=== PATIENT | female | born 1970 | race Caucasian/White ===

== ENCOUNTER → 2019-11-05 | Outpatient (CLI) | payer BC ==
[2019-11-05 13:33] VITALS: BP 126/83; PULSE 65; RESP 16; TEMP 98
--- NOTE | 2019-11-05 14:00 | P.GSHP ---
History of Present Illness H&P Date: 11/05/19 Chief Complaint: Abnormal right breast mammogram Eileen is a 49-year-old white female who had an initial mammogram performed in July 2019 and is seen in consultation for Mery Oconnell, and Dr. Torre regarding an abnormality in the right breast. Following this additional views of the right breast were recommended. On the right breast is noted to have persistent heterogeneous calcifications in the middle to posterior depth upper aspect. This was seen into lateral slice 35. The patient does not feel any lumps masses or nodules in her breast. She is not complaining of any nipple discharge or skin changes. She has not had any recent trauma or infection in the breast. Of concern is the fact that she has a sister diagnosed with breast cancer near the age of 50. Family History: sister: breast cancer patient: cervical cancer, no chemo or radiation father: colon cancer niece: cervical cancer Hormonal History; menarche: 14 , breast fed:no, age at first: 17 menopause: going through that now, periods stopped over a year ago BCP: none hormones: none Surgical history: Pins in the left elbow Tubal ligation Right wrist surgery stints placed on aspirin and plavix Medical History: OR May/stints placed Social History: smoke: stopped in , 09/09 PPD for 27 years alcohol: none drugs: none - Constitutional Constitutional: Reports sweats - EENT Eyes: denies blurred vision, denies pain Ears: deny: decreased hearing, tinnitus Ears, nose, mouth and throat: Denies headache, Denies sore throat - Breasts Breasts: bilateral: as per HPI - Cardiovascular Comment: OR - Respiratory Comment: former smoker - Gastrointestinal Comment: peptic ulcer disease - Genitourinary (Female) Genitourinary: Reports kidney stones, Denies dysuria, Denies hematuria - Menstruation Menstruation: Reports postmenopausal - Musculoskeletal Comment: arthritis in hands - Integumentary Integumentary: Denies pruritus, Denies rash - Neurological Neurological: Denies numbness, Denies weakness - Psychiatric Psychiatric: Denies anxiety, Denies depression - Endocrine Endocrine: Denies fatigue, Denies weight change - Hematologic/Lymphatic Comment: aspirin and plavix/ 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, can stop one or the other for two days - Allergic/Immunologic Allergic/Immunologic: Reports seasonal allergies Past Medical History Smoking Status: Former smoker Medications and Allergies Home Medications Medication Instructions Recorded Confirmed Type Aspirin [Adult Low Dose Aspirin EC] 81 mg PO QAM 11/05/19 11/05/19 History Atorvastatin [Lipitor] 80 mg PO HS 11/05/19 11/05/19 History Carvedilol [Coreg] 3.125 mg PO BID 11/05/19 11/05/19 History Clopidogrel [Plavix] 75 mg PO QAM 11/05/19 11/05/19 History Famotidine [Pepcid] 20 mg PO QAM 11/05/19 11/05/19 History Ferrous Sulfate [Iron] 325 mg PO QAM 11/05/19 11/05/19 History Gabapentin [Neurontin] 100 mg PO BID 11/05/19 11/05/19 History Lisinopril [Zestril] 5 mg PO HS 11/05/19 11/05/19 History metFORMIN HCL 500 mg PO HS 11/05/19 11/05/19 History Allergies Allergy/AdvReac Type Severity Reaction Status Date / Time sulfamethoxazole Allergy Rash/Hives Unverified 11/05/19 13:10 [From Bactrim] trimethoprim [From Bactrim] Allergy Rash/Hives Unverified 11/05/19 13:10 Surgical - Exam BMI 22.2 - General well developed, well nourished, no distress - Eyes normal ocular movement - ENT normal pinna, normal nares, no hearing loss, no congestion - Neck no masses, trachea midline - Respiratory normal expansion, normal respiratory effort, clear to auscultation - Cardiovascular Rhythm: regular Heart Sounds: normal: S1, S2 - Abdomen Abdomen: soft, non tender, bowel sounds, no guarding, no rigid, no rebound - Integumentary normal turgor - Neurologic no disoriented, no combative - Musculoskeletal normal gait - Psychiatric oriented to time, oriented to person, oriented to place, speech is normal, memory intact breast exam: BRA 34 C Ptosis grade 2 Inspection: Right breast slightly larger than the left breast with the nipple areolar complex slightly lower, no skin lesions of concern Palpation: Right breast: Fibrocystic changes on Multi-positional exam no dominant masses or nodules of concern Right axilla: No adenopathy of concern Left breast: Multiple positional exam fibrocystic changes no dominant mass or nodule is of concern Left axilla: No adenopathy of concern Results mammogram reviewed with Dr. Davis from radiology, area is suspicious enough that she believes it does warrant biopsy despite the fact patient is had a recent myocardial infarction, patient was told from cardiology she could stop aspirin or Plavix for 2 days before but not both Assessment and Plan Assessment: Impression: 1. Mammographic normality right breast 2. Bilateral fibrocystic breast changes 3. Family history of breast cancer 4. Recent myocardial infarction on aspirin and Plavix 5. Former smoker Plan: 1. Stereotactic core biopsy right breast 2. Patient is going to stop her Plavix for 2 days prior to the procedure Risks and benefits of stereotactic core biopsy discussed with the patient and her . They understand and understand that she is at increased risk for hematoma secondary to the fact she will continue on her aspirin. Risk include but are not limited to bleeding, infection, reaction to the anesthetic. There is a risk that the area of concern may not be sampled and the patient may require further intervention. They understand and wish to proceed. Clearance from Dr. Sheth (cardiology) reviewed she notes that the patient underwent placement of a proximal LAD stent in May 2019. That the ACC/AHA guideline recommendation is dual antiplatelet therapy for minimum of 1 year. The patient however has a sufficiently suspicious lesion in her right breast that biopsy is warranted. She will continue the aspirin and stop the Plavix for approximately 2 days prior to the procedure. She will restart the plavix again the first postoperative day. CC: Dr. Nicho Cha encounter 45 minutes, > 50% of time in planning and counselling
== END ==
LOC: WWCWWP 12:47
PROVIDERS: ATTEND Surgery
DX: Z53.9 Procedure and treatment not carried out, unspecified reason (principal)

== ENCOUNTER → 2020-02-08 | Outpatient (CLI) | payer BC | END | disposition home or self-care (01) | LOC: LABWHC1 10:04 | PROVIDERS: ATTEND Family Medicine | DX: Z11.59 Encounter for screening for other viral diseases (principal) ==

== ENCOUNTER → 2020-02-10 | Day surgery (SDC) | payer BC ==
[2020-02-10 07:19] VITALS: RESP 16; TEMP 98.4
--- NOTE | 2020-02-10 08:59 | P.PCN ---
Date of Procedure: 02/10/20 Preoperative Diagnosis: Mammographic abnormality right breast Postoperative Diagnosis: Same Procedure(s) Performed: Right breast stereotactic core biopsy Anesthesia: local Surgeon: Kristin Braun Estimated Blood Loss (ml): 0.2 Pathology: other (Breast tissue) Condition: stable Disposition: same day Indications for Procedure: Heterogeneous calcifications in the right breast Operative Findings: Dense breast tissue/microcalcifications noted in biopsy specimen Description of Procedure: Eileen is a 49-year-old white female who was noted to have heterogeneous calcifications middle to posterior depth upper aspect of the right breast. She was recommended to undergo a stereotactic core biopsy. The patient had 2 groups of calcifications which were being followed. The more suspicious group was a linear group. This was reviewed with Dr. Nelson from radiology. The patient has been on anticoagulation and continue his baby aspirin as well as stopping Plavix for only 2 days preprocedure. She wishes to undergo stereo biopsy. Risk and benefits of the procedure including hematoma were discussed with the patient. Alternatives including watchful waiting or from biopsy were not recommended. The patient was taken to the stereotactic core biopsy unit. The patient was positioned on the stereotactic table. A property management coordinator film was obtained. The area of concern was identified. The microcalcifications were very faint. A medial to lateral approach was utilized. The area of concern was localized using a stereo pair. The breast was prepped using Betadine. 25 mL of 1% lidocaine 20th which had epinephrine were used to anesthetize the area of concern. A 9-gauge vacuum- assisted core rotating biopsy needle was driven to the correct coordinates. The needle was fired. Post fire films revealed the needle to be in the correct location. 8 biopsy specimens were obtained. Radiograph of the specimen revealed that there were microcalcifications present. A secure deion top Marker was placed. The patient tolerated the procedure in stable condition. There was concern that the area of greatest suspicion was adequately sampled. A postprocedure radiograph is been obtained. The second area of calcifications was very faintly could not be well seen, therefore further recommendation will be made based on pathology from this area. The specimen was sent to pathology. The patient will follow-up Dr. De Leon next week.
[2020-02-10 09:32] VITALS: BP 119/73; PULSE 69
--- NOTE | 2020-02-10 12:36 | MM ---
EXAMINATION TYPE: MG stereo VAD BX RT DATE OF EXAM: 02/10/2020 COMPARISON: Outside diagnostic right mammogram dated 08/12/2019 CLINICAL HISTORY: Indeterminate right breast calcifications for which stereotactic guided biopsy was recommended. TECHNIQUE: Stereotactic guided core biopsy of right breast. FINDINGS: Prior to the procedure right exaggerated CC, right LM, spot identification LM and spot magnification CC views were performed as imaging from the outside institution of 08/12/2019 appeared incomplete. The procedure of stereotactic guided core biopsy was explained to the patient. Benefits, alternatives, and risks were discussed. An informed consent was then obtained. Preprocedural timeout was performed. The pathway in which the calcifications were best visualized was chosen for biopsy, which was a medial to lateral approach. I performed the localization with the surgeon, then surgeon, Dr. Moises Nuñez performed the remainder of the procedure. It was noted the calcifications were extremely difficult to visualize despite numerous attempts. A vacuum assisted biopsy gun was used to obtain multiple core samples. The patient tolerated the procedure well without any immediate complication. The patient was kept in the radiology department for short stay after the procedure and then discharged home in stable condition. Definitive calcifications are identified in specimen mammogram. Post biopsy mammogram shows the clip to appear in the upper outer quadrant rather than the expected location of the upper inner quadrant. IMPRESSION: SUCCESSFUL, UNCOMPLICATED STEREOTACTIC GUIDED CORE BIOPSY OF CALCIFICATIONS IN THE UPPER OUTER QUADRANT OF THE RIGHT BREAST LOCATED IN THE SAMPLE, HOWEVER THE TARGETED UPPER INNER QUADRANT CALCIFICATIONS WERE NOT SAMPLED THEY WERE DIFFICULT TO VISUALIZE AND LOCALIZED DESPITE MULTIPLE ATTEMPTS, FULL PATHOLOGY RESULTS TO FOLLOW. Pathology Results: Benign RIGHT BREAST, STEREOTACTIC CORE BIOPSY: Fibrocystic changes including fibrosis, small cysts, adenosis and calcifications. Recommendation Follow up mammogram of the right breast in 6 months. Surgical consult of the right breast. Continued follow up of upper inner quadrant calcifcations that were unable to be sampled. [facility]
== END ==
LOC: RADMAMWWP 07:02
PROVIDERS: ATTEND Surgery
DX: N60.11 Diffuse cystic mastopathy of right breast (principal); N60.21 Fibroadenosis of right breast
CPT/HCPCS: 88305; 19081; A4648; J2001

== ENCOUNTER → 2020-02-18 | Outpatient (CLI) | payer BC ==
[2020-02-18 11:18] VITALS: BP 128/78; PULSE 63; RESP 18; TEMP 98.2
--- NOTE | 2020-02-18 11:42 | P.PN ---
Subjective Progress Note Date: 02/18/20 Principal diagnosis: Status post air ejected biopsy of the right breast Eileen is a 49-year-old white female status post her tactic core biopsy of an area of concern in the right breast. Postprocedure the marking clip was reviewed with Dr. Nelson from radiology and it was not felt that the clip was in the correct location. This is been discussed with the patient and her . The pathology revealed fibrocystic changes including fibrosis small cyst adenosis and calcifications. The discussion with radiology was that if this was cancer the other areas would need to be biopsied. If this was benign a repeat mammogram in 6 months would be recommended as the area of calcification we were initially going flow was not well seen. The patient and her understand this may talked about the possibility of trying to do a needle localization resection the operating room and they wish to wait for 6 months. They understand that I cannot guarantee there is not something very small percolating than the breast which would require biopsy in the future however the wish to wait for 6 months for a repeat mammogram. Objective - Vital Signs Vital signs: Vital Signs Temp 98.2 F 02/18/20 11:16 Pulse 63 02/18/20 11:16 Resp 18 02/18/20 11:16 BP 128/78 02/18/20 11:16 Pulse Ox 97 02/18/20 11:16 Intake & Output 02/17/20 02/18/20 02/18/20 18:59 06:59 18:59 Weight 72.121 kg - Exam BMI 24.9 - Constitutional General appearance: Present: average body habitus - EENT Eyes: Present: EOMI ENT: Present: hearing grossly normal - Respiratory Respiratory: bilateral: CTA - Cardiovascular Rhythm: regular Heart sounds: normal: S1, S2 - Integumentary Integumentary Comment(s): Biopsy site right breast clean and dry no evidence of ecchymosis or hematoma - Musculoskeletal Musculoskeletal: Present: gait normal - Psychiatric Psychiatric: Present: A&O x's 3, appropriate affect, intact judgment & insight Assessment and Plan Assessment: Impression: 1. Stereotactic core biopsy right breast performed on 6420 benign with microcalcifications, however this is not felt to be the area of greatest concern in the breast that area was extremely difficult to visualize. After review with radiology and discussion with the patient and her they have opted for repeat right breast mammogram in 6 months with close surveillance. Attempted to needle localization and excision the operating room was discussed however at this time the patient would like to wait for the 6 months. Plan: 1. Repeat right breast mammogram in 6 months with physician exam at that time 2. Patient is anything of concern primarily would see her sooner CC: Mery Oconnell ([place]) encounter 15 minutes greater than 50% of time in planning and counselling
== END | disposition home or self-care (01) ==
LOC: WWCWWP 11:05
PROVIDERS: ATTEND Surgery
DX: Z53.9 Procedure and treatment not carried out, unspecified reason (principal)

== ENCOUNTER → 2020-03-17 | Outpatient (CLI) | payer BC ==
--- NOTE | 2020-03-17 09:48 | XR ---
EXAMINATION TYPE: XR abdomen 1V DATE OF EXAM: 03/17/2020 HISTORY: Pain Comparison: None.Single KUB is submitted for interpretation. Findings: Right renal calculi: None Visualized. Right ureteral calculi: 3mm calculus right UVJ Left renal calculi: None Visualized. Left ureteral calculi: None Visualized. Pelvic calcifications: None Visualized. Bowel gas pattern is unremarkable. No free air. No mass effects. IMPRESSION: 1. 3mm calculus right UVJ
== END | disposition home or self-care (01) ==
LOC: RADXRMAIN 08:45
PROVIDERS: ATTEND Urology
DX: N20.0 Calculus of kidney (principal); N20.1 Calculus of ureter
CPT/HCPCS: 74018

== ENCOUNTER → 2020-03-30 | Outpatient (CLI) | payer BC ==
--- NOTE | 2020-03-30 08:04 | XR ---
EXAMINATION TYPE: XR abdomen 1V DATE OF EXAM: 03/30/2020 COMPARISON: 03/17/2020 HISTORY: Pain TECHNIQUE: One view abdominal series FINDINGS: The osseous structures are intact. The bowel gas pattern is nonspecific. Retained fecal debris throu ghout the colon. Marked hypertrophy of the acetabulum bilaterally with findings suggestive of femoral acetabular impingement. Osteitis pubis condensans. There remains a tiny 2.7 mm calcification the rig ht hemipelvis. Renal outlines are obscured by bowel content. Sclerotic density overlying the left iliac bone may rep resent a small bone island. IMPRESSION: 1. Nonspecific abdomen. There remains a small 2 mm calcification in the right hemipelvis possibly wi thin the distal right UVJ.
== END | disposition home or self-care (01) ==
LOC: RADXRMAIN 07:21
PROVIDERS: ATTEND Urology
DX: N20.0 Calculus of kidney (principal); N20.1 Calculus of ureter
CPT/HCPCS: 74018; 82365

== ENCOUNTER → 2020-09-04 | Outpatient (CLI) | payer BC ==
--- NOTE | 2020-09-05 08:51 | MM ---
Reason for exam: follow-up at short interval from prior study. Last mammogram was performed 7 months ago. History: Patient is postmenopausal. Benign MG stereo VAD BX RT of the right breast, February 10, 2020. Physical Findings: Nurse did not find any significant physical abnormalities on exam. MG Diagnostic Mammo RT w CAD CC and MLO view(s) were taken of the right breast. Prior study comparison: February 10, 2020, mammogram. July 22, 2019, mammogram. The breast tissue is heterogeneously dense. This may lower the sensitivity of mammography. There are benign appearing round calcifications in the right breast. There is no discrete abnormality. These results were verbally communicated with the patient and result sheet given to the patient on 09/04/20. ASSESSMENT: Benign, BI-RAD 2 RECOMMENDATION: Routine screening mammogram of both breasts in 1 year.
== END | disposition home or self-care (01) ==
LOC: RADMAMWWP 13:57
PROVIDERS: ATTEND Surgery
DX: R92.8 Other abnormal and inconclusive findings on diagnostic imaging of breast (principal)
CPT/HCPCS: 77065